=== PATIENT | male | born 1985 | race Caucasian/White ===

== ENCOUNTER 2025-03-11 15:13 | Emergency (ER) | payer MEDICAID ==
[~2025-03-11] VITALS: Ht 190.5 cm; Wt 90.1 kg
--- NOTE | 2025-03-11 16:12 | Physician Documentation ---
History of Present Illness General Chief Complaint: Edema Stated Complaint: SWOLLEN FEET Time Seen by MD: 16:12 History of Present Illness Initial Comments Patient is a 39-year-old male complains of two days of swelling redness and pain with blisters to both feet. 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 He also uses marijuana and smokes cigarettes. Patient states he is not from here he got off the bus and he can not get out of town until Thursday. Patient states he does not have any money for any antibiotics or prescriptions. He states he has been in [place] where he has got in his medication free from the [facility]. Patient denies any fevers or chills. Patient denies any history of diabetes Medication Reconciliation Allergies: Coded Allergies: No Known Allergies (Unverified , 03/12/25) Review of Systems All Other Systems at this time: Reviewed and Negative Physical Exam Physical Exam Vital Signs: Temperature: 98.3, Source: Oral, Heart Rate: 89, Respiratory Rate: 18, BP: 137/83, Pulse Oximetry: 98, Weight: 90.100 Oxygen Flow Rate: 0 Physical Exam VITALS: Reviewed and as above. GENERAL: Alert, no apparent distress. HEENT: Normocephalic, atraumatic, PERRL, EOMI, dry mucosa, no erythema BACK: No CVA tenderness, or swelling MUSCULOSKELETAL: No deformities, no edema SKIN: The patient has a erythema to the soles of both feet he has multiple 1 cm blisters over the heel and ball of his feet bilaterally. There was no fluctuance. There was no extension of the erythema to the dorsal foot or the lower legs. There was no significant edema. NEURO: Oriented x4, No motor or sensory deficit PSYCH: Normal mood and affect, no agitation Progress Results/Orders Results/Orders Completed Orders - OHLLASHON RUVALCABA MD Cephalexin Capsule (Keflex Capsule) (03/11/25 16:35) Sulfamethox/Trimetho. Ds Tab (Septra Ds (03/11/25 16:35) Probenecid Tablet (Probenecid Tablet) (03/11/25 16:40) Ketorolac Trometh 15mg/Ml Vial (Toradol (03/11/25 17:10) Vital Signs 10/04/2503/11/25 03/11/25 03/11/25 15:27 16:14 16:15 17:32 Temp 98.3 98.7 Pulse 89 78 Resp 18 15 16 B/P (MAP) 137/83 142/86 (104) Pulse Ox 98 98 O2 Flow Rate 0 0 03/11/25 17:51 Temp 98.7 Pulse 66 Resp 18 B/P (MAP) 136/78 Pulse Ox 99 Medical Decision Making Findings The patient has cellulitis to his feet he is nontoxic he has significant to be noncompliant and not be able to fill his meds. The patient has been advised he should return tomorrow for another dose of meds he states he is going to be leaving town on Thursday. I have also told him to go to the health van to get prescriptions. The patient will get a g of Keflex here 1 g of probenecid and two Bactrim he has been advised to come back tomorrow and get a similar dose. Departure Time of Disposition: 16:33 Disposition: 01 HOME / SELF CARE / HOMELESS Impression: Primary Impression: Cellulitis Qualified Codes: L03.119 - Cellulitis of unspecified part of limb Discharge Instructions: Cellulitis, Adult, [id number] Referrals: NO PRIMARY CARE PROVIDER (PCP) Signature Scribe Signature: no scribe Attestation: The note accurately reflects work and decisions made by me.Lashon Kaplan MD 03/13/25 09:54 LASHON KAPLAN MD Mar 11, 2025 16:12
[2025-03-11] MEDS: sulfamethoxazole/trimethoprim DS (800/160mg) tablet PO ONE (17:03)
[2025-03-11] MEDS: probenecid 500mg tablet PO ONE (17:04)
[2025-03-11] MEDS: ketorolac trometh 15mg/ml vial 15 MG/ML ML IM ONE (17:32)
[2025-03-11 17:51] VITALS: BP 136/78; PULSE 66; RESP 18; TEMP 98.7; O2SAT 99
== END 2025-03-11 17:54 | disposition home or self-care (01) ==
LOC: ER 15:14
DX: L03.116 Cellulitis of left lower limb (principal); L03.115 Cellulitis of right lower limb; F15.90 Other stimulant use, unspecified, uncomplicated; F12.90 Cannabis use, unspecified, uncomplicated; F17.210 Nicotine dependence, cigarettes, uncomplicated; Z86.14 Personal history of Methicillin resistant Staphylococcus aureus infection
CPT/HCPCS: 96372; 99284; J1885

== ENCOUNTER 2025-03-12 08:28 | Emergency (ER) | payer MEDICAID ==
[~2025-03-12] VITALS: Ht 190.5 cm; Wt 90.8 kg
[2025-03-12 08:39] VITALS: BP 122/79; PULSE 90; RESP 18; TEMP 97.3; O2SAT 98
--- NOTE | 2025-03-12 09:44 | Physician Documentation ---
History of Present Illness ~ Chief Complaint: Foot pain Stated Complaint: MED REQUEST Time Seen by MD: 09:16 Source: patient Mode of Arrival: POV HPI 39-year-old male who is here due to bilateral foot pain. Pain is on the bottom of both his left and right foot and started at the same time a few days ago. Prior to onset of pain he had been doing a lot more walking than usual as he states he got out of jail a week ago. 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 Records show he received 1 g of Keflex, 1 g of probenecid and two tablets of Bactrim DS. Patient states that the pain has gotten better. He is homeless so he is unable to rest his feet and he is also requesting Betadine so he will be able to clean them. No fever, decreased range motion of his toes or lower extremities. Tetanus witin 5 years: Yes Medication Reconciliation Allergies: Coded Allergies: No Known Allergies (Unverified , 03/12/25) Past Medical History Past Medical History: No Pertinent History Past Surgical History: noncontributory Lives In: Homeless Review of Systems All Other Systems at this time: Reviewed and Negative Physical Exam Vital Signs: Temperature: 97.3, Source: Temporal, Heart Rate: 90, Respiratory Rate: 18, BP: 122/79, Pulse Oximetry: 98, Weight: 90.800 Oxygen Flow Rate: 0 Physical Exam General Appearance: Alert, WD/WN. NAD. HEENT: NCAT, PERRL, EOMI. PV: Pedal pulses 2+ bilaterally Lungs: Breathing unlabored Extremities: Normal range motion of the lower extremities, No edema. Skin: Warm/dry, normal color. Plantar aspect of both left and right foot there are scattered vesicles that are tender to palpation no drainage, no edema, skin is not macerated does not appear to be moist in between toes normal exam, nail plates are clear not thickened or yellowed. Neurological: Alert and oriented x4, normal gait. Psychiatric: Affect congruent with mood. Progress Results/Orders Results/Orders Orders - RICHARD NIELSON Probenecid Tablet (Probenecid Tablet) (03/12/25 09:35) Cephalexin Capsule (Keflex Capsule) (03/12/25 09:35) Sulfamethox/Trimetho. Ds Tab (Septra Ds (03/12/25 09:35) Vital Signs 03/12/25 08:39 Temp 97.3 Pulse 90 Resp 18 B/P (MAP) 122/79 Pulse Ox 98 O2 Flow Rate 0 Medical Decision Making Foot Diff Dx:Considerations: Include: Abrasion, Arthritis, Cellulitis, Contusion, Dislocation, DJD, Fracture-metatarsal, Fracture-phalynx, Fracture- tarsal, Gout, Hematoma, Ingrown toenail, Laceration, Malunion, Neurovascular injury, Open fracture, Paronychia, Puncture, Rheumatoid, Sprain, Septic, Subungual hematoma, Ulcer Additional Comment This has been an acute onset of pain on the bottom of both his left and right foot and he did not have this a week ago thus unlikely fungal. Considering the increase in his activity with walking a lot prior to onset I suspect that this is due to infected blisters I agree with the physician's assessment who saw him yesterday and treatment plan. Departure Time of Disposition: 09:44 Disposition: 01 HOME / SELF CARE / HOMELESS Impression: Primary Impression: Infected blister of foot Qualified Codes: S90.829A - Blister (nonthermal), unspecified foot, initial encounter; L08.9 - Local infection of the skin and subcutaneous tissue, unspecified Condition: Stable Discharge Instructions: Cellulitis Additional Instructions: WE ARE COVERING YOU FOR BOTH STAPH AND STREP. SINCE YOU DO NOT YET HAVE INSURANCE, YOU WILL HAVE TO RETURN TO ER TOMORROW FOR ANOTHER DOSAGE OF MEDICATION TRY TO KEEP CLEAN AND DRY Referrals: NO PRIMARY CARE PROVIDER (PCP) Education Educated: Patient Educated regarding: diagnosis, treatment, need for follow up Signature Scribe Signature: X Attestation: RICHARD WHITE Mar 12, 2025 09:44
[2025-03-12] MEDS: sulfamethoxazole/trimethoprim DS (800/160mg) tablet PO ONE (10:08)
[2025-03-12] MEDS: probenecid 500mg tablet PO ONE (10:09)
== END 2025-03-12 10:38 | disposition home or self-care (01) ==
LOC: ER 08:29
DX: S90.822A Blister (nonthermal), left foot, initial encounter (principal); S90.821A Blister (nonthermal), right foot, initial encounter; Z59.00 Homelessness unspecified; X58.XXXA Exposure to other specified factors, initial encounter; Y93.89 Activity, other specified; Y92.89 Other specified places as the place of occurrence of the external cause; Y99.8 Other external cause status
CPT/HCPCS: 99284

== ENCOUNTER 2025-03-12 23:12 | Emergency (ER) | payer MEDICAID ==
[~2025-03-12] VITALS: Ht 190.5 cm; Wt 83.0 kg
[2025-03-12 23:22] VITALS: TEMP 97.6
--- NOTE | 2025-03-12 23:50 | Physician Documentation ---
History of Present Illness ~ Chief Complaint: Wound Re-Check Stated Complaint: REQUESTING SHOT FOLLOW UP Time Seen by MD: 23:41 Source: patient Mode of Arrival: POV Exam Limitations: no limitations HPI Presents after being seen this morning for increased pain to his bilateral feet. He was seen for infected blisters. Unfortunately, did not have insurance to get prescriptions. He also requested some lidocaine cream for his pain. Case the blisters are improving since his last visit. Tetanus within 5 years?: Yes Medication Reconciliation Allergies: Coded Allergies: No Known Allergies (Unverified , 03/12/25) Past Medical History Past Medical History: No Pertinent History Past Surgical History: noncontributory Lives In: Homeless Review of Systems ROS Patient complains of wounds to the bilateral feet. Denies fevers or chills. Was asked, but otherwise denies review of systems. Physical Exam Vital Signs: RN Vital Signs have been reviewed: Yes, Temperature: 97.6, Source: Temporal, Heart Rate: 88, Respiratory Rate: 15, BP: 122/80, Pulse Oximetry: 98, Weight: 83.000 Pulse Oximetry Reflects: adequate oxygenation Physical Exam General: Awake, alert, oriented. No apparent distress Lower extremities: No lower extremity edema: There are blisters noted to the plantar surface of the feet. Lungs: Clear to auscultation bilaterally Progress Results/Orders Results/Orders Orders - SHARIFA HO NP Ibuprofen Tablet (Motrin Tablet) (03/12/25 23:50) Sulfamethox/Trimetho. Ds Tab (Septra Ds (03/12/25 23:50) Cephalexin Capsule (Keflex Capsule) (03/12/25 23:50) Lidocaine Ointment (Lidocaine Ointment) (03/12/25 23:50) Vital Signs 03/12/25 23:22 Temp 97.6 Pulse 88 Resp 15 B/P (MAP) 122/80 Pulse Ox 98 Medical Decision Making Findings Presents secondary to pain to his feet with bilateral blisters. Was seen here today for infected blisters. He states the infection is improve. On exam there is no significant erythema. Blisters are noted to the plantar surface of the feet. Given that he received antibiotics this morning he will receive a dose today. 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 Therefore, he is being given them here in the emergency department. He states he needs a dose of pain medication. He will be given ibuprofen. He was also requesting lidocaine for his feet. There is no open areas. Therefore, this was provided at his request. Differential Dx:Considerations: Include: Abscess, Cellulitis, Dressing change, Healing wound Departure Time of Disposition: 23:50 Impression: Primary Impression: Infected blister of foot Qualified Codes: S90.829D - Blister (nonthermal), unspecified foot, subsequent encounter; L08.9 - Local infection of the skin and subcutaneous tissue, unspecified Condition: Stable Additional Instructions: Please keep your feet dry. Return for new or worsening symptoms Otherwise, please follow up with primary care provider. Referrals: NO PRIMARY CARE PROVIDER (PCP) Education Educated: Patient Educated regarding: diagnosis, treatment, need for follow up Signature Scribe Signature: No scribe Attestation: The note accurately reflects work and decisions made by me.Sharifa Ho - OLE 03/12/25 23:53 This note was created with the assistance of voice recognition software whereby errors in grammar, syntax, and/or spelling may have occurred despite active pr oofreading efforts by the author. Please do not hesitate to contact the provider for clarification or for questions regarding the content of this document. SHARIFA HO NP Mar 12, 2025 23:50
[2025-03-13] MEDS: sulfamethoxazole/trimethoprim DS (800/160mg) tablet PO ONE (00:03)
[2025-03-13] MEDS: ibuprofen tablet 400 MG TABLET PO ONE (00:03)
[2025-03-13] MEDS: LIDOCAINE 5% OINTMENT 35GM TP ONE (00:04)
[2025-03-13 00:13] VITALS: BP 120/78; PULSE 86; RESP 20; O2SAT 99
== END 2025-03-13 00:14 | disposition home or self-care (01) ==
LOC: ER 23:13
DX: S90.829D Blister (nonthermal), unspecified foot, subsequent encounter (principal); Z59.00 Homelessness unspecified
CPT/HCPCS: 99284

== ENCOUNTER 2025-03-13 10:10 | Emergency (ER) | payer MEDICAID ==
[~2025-03-13] VITALS: Ht 193 cm; Wt 89.6 kg
[2025-03-13 10:16] VITALS: BP 132/87; PULSE 96; RESP 18; TEMP 97.6; O2SAT 95
--- NOTE | 2025-03-13 10:53 | Physician Documentation ---
History of Present Illness ~ Chief Complaint: Foot pain Stated Complaint: MED REQ Time Seen by MD: 10:50 HPI This 39-year-old male returns to the ED with similar complaints from his previous visits. He states he has infection on his lower extremities on his feet. Has any fevers or nausea or vomiting. Tetanus witin 5 years: Yes Medication Reconciliation Allergies: Coded Allergies: No Known Allergies (Unverified , 03/12/25) Past Medical History Past Medical History: No Pertinent History Past Surgical History: noncontributory Lives In: Homeless Review of Systems All Other Systems at this time: Reviewed and Negative ROS As stated above in the HPI, otherwise all systems are reviewed and negative. Physical Exam Vital Signs: Temperature: 97.6, Source: Temporal, Heart Rate: 96, Respiratory Rate: 18, BP: 132/87, Pulse Oximetry: 95, Weight: 89.600 Physical Exam General: Alert, no apparent distress. Extremities: Normal range of motion, no deformity. Minor blisters that are in the process of healing the inferior aspect of both feet. No signs of erythema,swelling or drainage. Neurologic: Oriented x4. Psychiatric: Normal mood and affect. Skin: Normal color, warm and dry. No edema, no ecchymosis. Progress Results/Orders Results/Orders Vital Signs 03/13/25 10:16 Temp 97.6 Pulse 96 Resp 18 B/P (MAP) 132/87 Pulse Ox 95 Medical Decision Making Additional info obtained from: other Findings I explained to the patient that based on my physical exam he does not meet criteria for antibiotic therapy. I recommended wearing socks was shoes and utilizing good hygiene General Diff Dx:Considerations: Unlikely: Abrasion, Contusion, Fracture, Hematoma, Laceration, Malunion, Neurovascular injury, Open fracture, Sprain, Ulcer, Other Knee Diff Dx:Considerations: Unlikely: Abrasion, Arthritis, Contusion, DJD, Fracture-femur, Fracture-fibula, Fracture-patella, Fracture-tibia, Gout, Hematoma, Laceration, Meniscus injury, Neurovascular injury, Open fracture, Rheumatoid arthritis, Septic, Sprain, Sprain-MCL, Sprain-LCL, Sprain-ACL, Sprain-PCL, Other Ankle Diff Dx:Considerations: Unlikely: Abrasion, Arthritis, Contusion, DJD, Fracture-metatarsal, Fracture-fibula, Fracture-tarsal, Fracture-tibia, Gout, Hematoma, Laceration, Malunion, Neurovascular injury, Nonunion, Open fracture, Osteomyelitis, Rheumatoid arthritis, Sprain, Septic, Ulcer, Other Foot Diff Dx:Considerations: Include: Abrasion, Arthritis, Cellulitis, Contusion, Dislocation, DJD, Fracture-metatarsal, Fracture-phalynx, Fracture- tarsal, Gout, Hematoma, Ingrown toenail, Laceration, Malunion, Neurovascular injury, Open fracture, Paronychia, Puncture, Rheumatoid, Sprain, Septic, Subungual hematoma, Ulcer, Other Toe Diff Dx:Considerations: Unlikely: Abrasion, Cellulitis, Contusion, Dislocation, Felon, Fracture, Hematoma, Laceration, Neurovascular injury, Open fracture, Paronychia, Subungual hematoma, Other Departure Impression: Primary Impression: Infected blister of foot Condition: Stable Discharge Instructions: Blisters, Adult Referrals: NO PRIMARY CARE PROVIDER (PCP) Signature Scribe Signature: t Attestation: Scribed for Forrest Abbott Environmental Safety Specialist by Forrest Packer NP . 03/13/25 16:10 FORREST ABBOTT NP Mar 13, 2025 10:53
== END 2025-03-13 10:58 | disposition home or self-care (01) ==
LOC: ER 10:11
DX: S90.822A Blister (nonthermal), left foot, initial encounter (principal); S90.821A Blister (nonthermal), right foot, initial encounter; Z59.00 Homelessness unspecified; X58.XXXA Exposure to other specified factors, initial encounter; Y93.89 Activity, other specified; Y92.89 Other specified places as the place of occurrence of the external cause; Y99.8 Other external cause status
CPT/HCPCS: 99282